=== PATIENT | male | born 1975 | race Caucasian/White ===

== ENCOUNTER 2022-01-28 03:45 | Emergency (ER) | payer BC, OTHER ==
[~2022-01-28] VITALS: Ht 172 cm; Wt 1177.0 kg
--- NOTE | 2022-01-28 04:15 | ED General ---
General Chief Complaint: Allergic Reaction Stated Complaint: HIVE,SORE THROAT Nursing Triage Note: HIVES SINCE AUGUST, COME AND GO, BACK LAST FEW DAYS. AHSAN DAHL UNABLE TO SLEEP DUE TO HIVES. COMPLAINT OF SORE THROAT ALSO. DENIES SOB, TROUBLE SWALLING. 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 CAUSE OF HIVES IS UNKNOWN. STATES THEY WERE GETTING BETTER, BUT STATES THEY "KICKED BACK IN" AND GOT WORSE THE LAST COUPLE OF DAYS STATES HE CAN'T SLEEP DUE TO ITCHING. HAS NOT TAKEN ANY BENADRYL OR ANY ADDITIONAL MEDICATION FOR IT--ONLY IS DAILY PRESCRIBED MEDICATIONS. HIVES ARE ALL ACROSS HIS LOWER ABDOMEN AND GROIN AREA. NO OTHER PARTS OF BODY ARE INVOLVED. NO SWELLING ANYWHERE NO DIFFICULTY BREATHING OR SWALLOWING OR TALKING NO DIZZINESS OR SYNCOPE NO PALPITATIONS OR CHEST PAIN/TIGHTNESS ALSO C/O SORE THROAT--MOSTLY ON THE RIGHT SIDE OF HIS THROAT--SINCE THIS EVENING NO FEVER/SWEATS/CHILLS NO LOSS OF TASTE/SMELL NO URI SYMPTOMS OR COUGH NO GI SYMPTOMS NO HEADACHE OR BODY ACHES NO NEW MEDICATIONS, PRODUCTS OR EXPOSURES, NO NEW FOODS, ETC. NO KNOWN SICK CONTACTS PT IS FULLY VACCINATED FOR COVID-19 WITH VACCINES X 4, AND HAS HAD FLU VACCINE. PT BROKE HIS LEFT ANKLE 6 WEEKS AGO, AND IS CURRENTLY IN A WALKING BOOT--NO SURGERY REQUIRED STATES HE IS NOT ON ANY MEDICATION FOR THAT PROBLEM PCP: DR. LAKESHA NESBITT SLEEVER FOR HIVES: DR. LANGE IN [facility]KLE [facility] Allergies and Home Medications Patient Home Medication List Home Medication List Reviewed: Yes Review of Systems Review of Systems Constitutional: no symptoms reported; No chills, No diaphoresis, No dizziness, No fever, No weakness EENTM: see HPI, throat pain; No ear pain, No hoarseness, No mouth pain, No mouth swelling, No nose congestion, No throat swelling Respiratory: no symptoms reported; No cough, No dyspnea on exertion, No orthopnea, No short of breath, No stridor, No wheezing Cardiovascular: no symptoms reported; No chest pain Gastrointestinal: no symptoms reported; No abdominal pain, No nausea, No vomiting Genitourinary: no symptoms reported Musculoskeletal: see HPI Skin: see HPI, pruritus, rash Psychiatric/Neurological: No Symptoms Reported Hematologic/Lymphatic: No Symptoms Reported Immunological/Allergic: see HPI Past Cdmvbqs-Wjluax-Yffqrn Hx Patient Social History Tobacco Use?: Yes (SMOKES 1 PPD) Tobacco type used: Cigarettes Smoking Status: Current Everyday Smoker Use of E-Cig and/or Vaping dev: No Substance use?: No Alcohol Use?: No Immunizations Up To Date Influenza Vaccine Up-to-Date: Yes; Up-to-Date First/Initial COVID19 Vaccinat: MODERNA Second COVID19 Vaccination Jairon: MODERNA Third COVID19 Vaccination Date: Past Medical History Surgery/Hospitalization HX: CHOLEY, BACK SURGERY Surgeries: Yes (LUMBAR SPINE SURGERY) Gallbladder, Orthopedic Respiratory: Yes COPD Cardiac: Yes High Cholesterol, Hypertension Neurological: No Genitourinary: No Gastrointestinal: Yes (S/P CHOLECYSTECTOMY) Gastroesophageal Reflux, Gall Bladder Disease Musculoskeletal: Yes (L ANKLE FX 12/2021; LUMBAR SPINE SURGERY) Chronic Back Pain, Fractures Endocrine: No HEENT: No Cancer: No Psychosocial: No Integumentary: Yes (CHRONIC HIVES) Blood Disorders: No Physical Exam Vital Signs Vital Signs - First Documented 01/28/22 03:58 Temp 36.5 Pulse 102 Resp 18 B/P (MAP) 158/96 (116) Pulse Ox 97 O2 Delivery Room Air Capillary Refill : Less Than 3 Seconds Height, Weight, BMI Height: '" Weight: lbs. oz. kg; 397.00 BMI Method: General Appearance: No Apparent Distress, WD/WN HEENT: PERRL/EOMI, TMs Normal, Normal ENT Inspection, Pharynx Normal, Moist Mucous Membranes; No Pharyngeal Erythema, No Tonsillar Exudate, No Tonsillar Enlargement Neck: Full Range of Motion, Normal Inspection, Non Tender, Supple; No Lymphadenopathy (L), No Lymphadenopathy (R) Respiratory: Normal Breath Sounds, No Accessory Muscle Use, No Respiratory Distress Cardiovascular: Regular Rate, Rhythm, No Murmur Gastrointestinal: Soft Back: No CVA Tenderness Extremity: Other (WALKING BOOT ON LEFT FOOT/LEG; NO SWELLING OR ABNORMALITY TO OTHER EXTREMITIES. ) Neurologic/Psychiatric: Alert, Oriented x3, No Motor/Sensory Deficits, Normal Mood/Affect, stable hand II-XII Norm as Tested Skin: Normal Color, Warm/Dry, Rash (HAS DIFFUSE, CONFLUENT MILD ERYTHEMA ALL ACROSS LOWER ABDOMEN/SUPRAPUBIC AREA. NO URTICARIAL WHEALS OR DISCRETE MARGINS. NO RASH IS NOTED ANYWHERE ELSE ON BODY.. NO SWELLING NOTED ANYWHERE) Progress/Results/Core Measures Suspected Sepsis SIRS Temperature: Pulse: 102 Respiratory Rate: 18 Blood Pressure 158 /96 Mean: 116 Results/Orders Lab Results Laboratory Tests Test 01/28/22 04:05 Range/Units Group A Streptococcus Screen NEGATIVE NEGATIVE My Orders Orders - THIERNO LEÓN DO Rapid Strep A Screen (01/28/22 04:07) Vital Signs/I&O 01/28/22 03:58 Temp 36.5 Pulse 102 Resp 18 B/P (MAP) 158/96 (116) Pulse Ox 97 O2 Delivery Room Air Capillary Refill : Less Than 3 Seconds Blood Pressure Mean: 116 Departure Impression Primary Impression: RECURRENT RASH Disposition: HOME, SELF-CARE Condition: Stable Departure-Patient Inst. Decision time for Depature: 04:29 Referrals: LAKESHA NESBITT MD (PCP/Family) Primary Care Physician Patient Instructions: Skin Rash (DC) Add. Discharge Instructions: CONTINUE YOUR REGULAR MEDICATIONS PRESCRIBED, YOU MAY INCREASE YOUR PEPCID UP TO 40 MG 1-2 TIMES A DAY IF NEEDED, YOU MAY TAKE 2 ANNMARIE TODAY IF NEEDED. YOU MAY TAKE BENADRYL 50 MG EVERY 4 HOURS AT NIGHT NEEDED FOR ITCHING FOLLOW UP WITH YOUR SLEEVER ON SUNDAY IF NO BETTER, RETURN TO ER IF WORSE. All discharge instructions reviewed with patient and/or family. Voiced understanding. Scripts Prednisone (Prednisone) 20 Mg Tab 40 MG PO DAILY, #6 TAB 0 Refills Prov: THIERNO LEÓN DO 01/28/22 THIERNO LEÓN DO January 28, 2022 04:15
[2022-01-28] MEDS ORDERED: methylPREDNISolone 125 MG (Solu-MEDROL) VIAL IM ONE (04:30)
[2022-01-28] MEDS ORDERED: PRD20T PO (04:32)
[2022-01-28 04:38] VITALS: BP 158/96
== END 2022-01-28 04:43 | disposition home or self-care (01) ==
LOC: ER 03:50
DX: R21 Rash and other nonspecific skin eruption (principal); F17.210 Nicotine dependence, cigarettes, uncomplicated
CPT/HCPCS: 87430; 99284

== ENCOUNTER 2022-10-26 18:22 | Emergency (ER) | payer BC ==
[~2022-10-26] VITALS: Ht 180 cm; Wt 120.0 kg
[~2022-10-26 18:22] MED LIST: PRD20T PO
[2022-10-26] MEDS ORDERED: MUPI15CR11 TP (18:40)
--- NOTE | 2022-10-26 18:41 | ED GU-Male ---
General Chief Complaint: - Reproductive Source: patient Exam Limitations: no limitations History of Present Illness Date Seen by Provider: Oct 26, 2022 Time Seen by Provider: 18:37 Initial Comments Patient is a 47-year-old male who presents ED with redness, bruising to the tip of his penis. He states this started a week and a half ago after he was having sexual intercourse with his partner who is a male. He states after having sexual intercourse he noted some bruising and pain. Patient started to have redness and swelling with purulent drainage after a few days. Apply topical hydrocortisone without significant improvement. Tried topical antifungal spray without much improvement. He states the bruising has stayed the same but noticed some redness and swelling around the head of the penis with some drainage. He is concerned for potential infection. He reports some burning sensation that is mild. Denies having any urinary symptoms, headache, dizziness, nausea, vomiting, diarrhea, scrotum pain, abdominal pain, burning with urination. Allergies and Home Medications Allergies Coded Allergies: No Known Drug Allergies (Unverified , 01/28/22) Patient Home Medication List Home Medication List Reviewed: Yes Cephalexin (Cephalexin) 500 Mg Tablet, 500 MG PO QID Prescribed by: ROBERT ZHENG on 10/26/22 194 Mupirocin Calcium (Mupirocin) 2 % Cream..g., 15 GM TP BID Prescribed by: ROBERT ZHENG on 10/26/221839 Prednisone (Prednisone) 20 Mg Tab, 40 MG PO DAILY Prescribed by: THIERNO LEÓN on 01/28/22 0432 Review of Systems Review of Systems Constitutional: No chills, No diaphoresis, No malaise, No weakness EENTM: No ear pain, No blurred vision, No double vision Cardiovascular: No chest pain Gastrointestinal: No abdominal pain, No diarrhea, No nausea, No vomiting Genitourinary: denies burning, denies discharge, denies frequency, denies flank pain Musculoskeletal: No back pain, No joint pain Skin: change in color Past Tlcjhjl-Hkprkt-Dqlobn Hx Immunizations Up To Date First/Initial COVID19 Vaccinat: MODERNA Second COVID19 Vaccination Jairon: MODERNA Third COVID19 Vaccination Date: Past Medical History Surgery/Hospitalization HX: CHOLEY, BACK SURGERY Surgeries: Yes (LUMBAR SPINE SURGERY) Gallbladder, Orthopedic Respiratory: Yes COPD Cardiac: Yes High Cholesterol, Hypertension Neurological: No Genitourinary: No Gastrointestinal: Yes (S/P CHOLECYSTECTOMY) Gastroesophageal Reflux, Gall Bladder Disease Musculoskeletal: Yes (L ANKLE FX 12/2021; LUMBAR SPINE SURGERY) Chronic Back Pain, Fractures Endocrine: No HEENT: No Cancer: No Psychosocial: No Integumentary: Yes (CHRONIC HIVES) Blood Disorders: No Physical Exam Vital Signs Vital Signs - First Documented 10/26/22 18:30 Temp 36.3 Pulse 106 Resp 18 B/P (MAP) 167/93 (117) Pulse Ox 96 Capillary Refill : Height, Weight, BMI Height: '" Weight: lbs. oz. kg; 397.00 BMI Method: General Appearance: WD/WN, no apparent distress HEENT: PERRL/EOMI, normal ENT inspection, TMs normal, pharynx normal Neck: non-tender, full range of motion, supple Cardiovascular: regular rate, rhythm, no edema, no gallop Respiratory: chest non-tender, lungs clear, normal breath sounds, no respiratory distress Gastrointestinal: normal bowel sounds, non tender, soft, no organomegaly Male: other (Bruising noted to the head of the penis on the left lateral side. No vascular lesions. Mild purulent drainage. Mild erythema. No scrotum tenderness. 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 Retractable foreskin. Concerning for penile contusion/developing blanitis. Surrounding erythema. No vesicular lesions, scaly lesions, ulcers, chancre, groin lymphadenopathy. He is not concern for sexual transmitted affection. No urinary symptoms. Appears to have a small contusion secondary to sexual trauma. Secondary erythema, purulent drainage fungal versus infectious. He states he has been applying topical Neosporin without much improvement. Discussed trying clotrimazole topical with oral Keflex which would cover bacterial and fungal.. Discussed sitz bath. Avoid any soaps. Avoid any sexual intercourse until healing. Patient agrees with plan of action. Follow-up your PCP in 2 to 3 days for reevaluation Impression Primary Impression: Cathi Disposition: 01 HOME, SELF-CARE Condition: Stable Departure-Patient Inst. Decision time for Depature: 18:38 Referrals: [facility] [place],LOCAL PHYSICIAN (PCP) Primary Care Physician Patient Instructions: Balanitis Scripts Clotrimazole (Clotrimazole) 1 % Cream..g. 15 GM TP BID for 10 Days, #1 EA Prov: PASCALE TATE 10/26/22 Cephalexin (Cephalexin) 500 Mg Tablet 500 MG PO QID for 7 Days, #28 TAB Prov: PASCALE TATE 10/26/22 PASCALE TATE Oct 26, 2022 18:41
[2022-10-26 18:51] VITALS: BP 167/93
[2022-10-26] MEDS ORDERED: CEPH500T PO (19:46)
[2022-10-26] MEDS ORDERED: CLOT15CR28 TP (19:55)
== END 2022-10-26 18:50 | disposition home or self-care (01) ==
LOC: EDUNIT# 18:22 → ER 18:25
DX: N48.1 Balanitis (principal)
CPT/HCPCS: 99282